=== PATIENT | female | born 1960 | race Caucasian/White ===

== ENCOUNTER → 2016-11-26 | Outpatient (CLI) | payer BC | LOC: FIMAGING 07:12 | PROVIDERS: ATTEND Family Medicine | DX: G44.84 Primary exertional headache (principal); R41.89 Other symptoms and signs involving cognitive functions and awareness; G44.53 Primary thunderclap headache; Z79.899 Other long term (current) drug therapy ==

== ENCOUNTER → 2017-09-02 | Outpatient (CLI) | payer BC | LOC: EDSEX 08:49 → FIMAGING 08:49 | PROVIDERS: ATTEND Obstetrics & Gynecology Gynecology | DX: Z12.31 Encounter for screening mammogram for malignant neoplasm of breast (principal) ==